=== PATIENT | male | born 1960 | race Caucasian/White ===

== ENCOUNTER 2016-10-07 22:57 | Inpatient (IN) | payer BC ==
[~2016-10-07] VITALS: Ht 180.3 cm; Wt 90.6 kg
[~2016-10-07 22:57] MED LIST: ALBU1AER9 INH; DOCU100C22 PO; GLIM4TAB2 PO; INSUINJ4 SQ; LPT/20 PO; LSN/2025 PO; METF750T PO; SENN-91 PO; WLLSR150 PO
[2016-10-07] MEDS ORDERED: KETOROLAC TROMETHAMINE 30 MG/ML VIAL IV STA (23:48)
[2016-10-07] MEDS ORDERED: SODIUM CHLORIDE 0.9% 1000ML 1,000 ML IV STA ×2 (23:48)
[2016-10-07 23:59] LABS: BASO % 0.5 %; BASO ABS # 0.04 K/uL (0-0.2); COMPLETE YES; EOS % 1.9 %; HEMATOCRIT 45.2 % (42-52); IG% 0.4 %; LYMPH % 36.7 %; LYMPH ABS # 2.73 K/uL (1.2-3.4); MEAN CELL VOLUME 89.5 fL (80-100); MEAN CORPUSCULAR HEMOGLOBIN 31.7 pg (25-34); MEAN CORPUSCULAR HGB CONC 35.4 g/dl (32-36); MEAN PLATELET VOLUME 12.9 fL (7.4-10.4); MONO % 6.7 %; NEUT % 53.8 %; PLATELET COUNT 211 K/uL (130-400); RED BLOOD COUNT 5.05 M/uL (4.7-6.1); WHITE BLOOD COUNT 7.44 K/uL (4.8-10.8)
[2016-10-08] VITALS (7 sets, daily range): BP systolic 112–127; BP diastolic 56–75; PULSE 62–79; TEMP 36.6–36.8; O2SAT 94–100; BMI 28.1; BMI 27.8
[2016-10-08 00:13] LABS: URINE APPEARANCE CLEAR (CLEAR); URINE BILIRUBIN NEG (NEG); URINE COLOR YELLOW; URINE NITRITE NEG (NEG); URINE SPECIFIC GRAVITY 1.032 (1.000-1.030); UROBILINOGEN NEG (NEG); ZZUR CULT IF INDIC CLEAN CATCH NO
[2016-10-08 00:21] LABS: MANUAL MICROSCOPIC REQUIRED? NO; REVIEW REQ? NO
[2016-10-08 00:27] LABS: VEN BLOOD GAS BASE EXCESS -0.9 mmol/L
[2016-10-08 00:44] LABS: ALKALINE PHOSPHATASE 165 U/L (45-117); ALT/SGPT 44 U/L (12-78); AST/SGOT 24 U/L (15-37); BLOOD UREA NITROGEN 26 mg/dl (7-18); BUN/CREATININE RATIO 18.6 (10-20); CALCIUM 8.6 mg/dl (8.5-10.1); CARBON DIOXIDE 23 mmol/L (21-32); CHLORIDE 92 mmol/L (98-107); CKMB/CK RATIO 0.9 (0-3.0); GLUCOSE 606 mg/dl (70-99); MAGNESIUM 2.3 mg/dl (1.8-2.4); POTASSIUM 3.7 mmol/L (3.5-5.1); SODIUM 129 mmol/L (136-145)
[2016-10-08] MEDS ORDERED: NovoLIN-R INSULIN PER UNIT CHARGE IV STA (00:47)
[2016-10-08 01:07] LABS: BETA-HYDROXYBUTYRATE 6.48 mg/dL (0.2-2.81)
[2016-10-08] MEDS ORDERED: VNTHFA/IN INH (01:08)
[2016-10-08] MEDS ORDERED: INSU100I23 SQ (01:09)
[2016-10-08] MEDS ORDERED: ASPI81TA28 PO (01:09)
[2016-10-08] MEDS ORDERED: INDO-24 PO (01:10)
[2016-10-08] MEDS ORDERED: INSULIN HUMAN REGULAR PER UNIT 10 UNITS in SYRINGE 0 ML IV STA (01:13)
[2016-10-08] MEDS ORDERED: ONDANSETRON INJ 2 MG/ML 2 ML VIAL IV PRN (01:15)
[2016-10-08] MEDS ORDERED: MAGNESIUM HYDROXIDE SUSP 30 ML UDC PO PRN (01:15)
[2016-10-08] MEDS ORDERED: POLYETHYLENE (MIRALAX) 17 GM PACK PO PRN (01:15)
[2016-10-08] MEDS ORDERED: ACETAMINOPHEN 325 MG TAB PO PRN (01:15)
[2016-10-08] MEDS ORDERED: NITROGLYCERIN 0.4 MG SL PER TAB CHARGE SL PRN (01:15)
[2016-10-08] MEDS ORDERED: ALUMINUM/MAGNESIUM/SIMETH (MAALOX MAX) 30 ML UDC PO PRN (01:15)
[2016-10-08] MEDS ORDERED: PHARMACY GLYCEMIC MGMT CONSULT PRN (01:21)
--- NOTE | 2016-10-08 01:23 | EMERGENCY ROOM VISIT NOTE ---
History First contact with patient: 23:29 Chief Complaint: HYPERGLYCEMIA Stated Complaint: SUGAR HIGH,DIZZY,URINATITE FREQUENT,CHESTPAIN Nursing Triage Summary: Patient reports feeling hot and dry and sleepy. Home BSG was out of range today. History of Present Illness The patient is a 56 year old male who presents to the Emergency Room with complaints of high blood sugars with left-sided chest pain. Patient states that he has had chest pain for the past 3 days that has been intermittent described as discomfort, ranging in severity 4 out of 10. Nothing makes it better or worse. Patient states today he noticed his blood sugars were high. Patient states he's been feeling fatigued with polydipsia, polyuria and diplopia. Patient denies dyspnea, fever, chills, cough, congestion, abdominal pain, vomiting, diarrhea, dysuria. No history of DKA. Patient states his grandfather had a heart attack in his 70s. Patient does have diabetes, blood pressure and cholesterol. He does not smoke. Review of Systems See HPI for pertinent positives & negatives. A total of 10 systems reviewed and were otherwise negative. Past Medical/Surgical History Medical Problems: (1) Calculus Of Kidney (2) Chest pain (3) Diabetes (4) Heart disease (5) Hyperlipidemia Nec/Nos (6) Hypertension (7) Irritable bowel syndrome Family History Cancer Diabetes mellitus FH: heart disease Hypertension Social History Smoking Status: Never Smoker Smokeless Tobacco Use: No Alcohol Use: none Drug Use: none Marital Status: Housing Status: lives with family Occupation Status: employed Current/Historical Medications Scheduled Aspirin (Aspirin Ec), 81 MG PO DAILY Atorvastatin (Atorvastatin Calcium), 20 MG PO DAILY Docusate Sodium (Docqlace), 100 MG PO DAILY Hctz/Lisinopril (Lisinopril/Hctz 20/25 Mg), 1 TAB PO DAILY Insulin Glargine (Basaglar Kwikpen), 30 UNITS SQ DAILY Metformin Hcl (Glucophage Er), 750 MG PO DAILY Scheduled PRN Albuterol Hfa (Ventolin Hfa), 2 PUFFS INH Q4 PRN for Shortness of Breath Indomethacin (Indocin), 50 MG PO TID PRN for Pain Allergies Uncoded Allergies: UNKNOWN EYE OINTMENT (Allergy, Unknown, Unknown, 03/06/14) Physical Exam Vital Signs Date Time Temp Pulse Resp B/P Pulse Ox O2 Delivery O2 Flow Rate FiO2 4/10/17 00:17 94 Room Air 10/08/16 00:17 95 Room Air 10/08/16 00:17 66 10/07/16 23:10 36.6 79 18 138/96 96 Room Air Physical Exam VITALS: Vitals are noted on the nurse's note and reviewed by myself. Vital signs stable. GENERAL: Pleasant male, in no acute distress, nondiaphoretic, well-developed well-nourished. SKIN: The skin was without rashes, erythema, edema, or bruising. There is no tenting of the skin. Capillary reflex less than 2 seconds. HEAD: Normocephalic atraumatic. EARS: External auditory canals clear, tympanic membranes pearly mcdonald without erythema or effusion bilaterally. EYES: Pupils equal round and reactive to light and accommodation. Conjunctivae without injection, sclerae without icterus. Extraocular movements intact. NOSE: Patent, turbinates without inflammation or discharge. MOUTH: Mucous membranes mildly dry. Pharynx without erythema or exudate. Uvula midline. Airway patent. Tongue does not deviate. NECK: Supple without nuchal rigidity. No lymphadenopathy. No thyromegaly. Cervical spine is nontender. No JVD. HEART: Regular rate and rhythm without murmurs gallops or rubs. Chest nontender to palpation LUNGS: Clear to auscultation bilaterally without wheezes, rales or rhonchi. No dullness to percussion. No retractions or accessory muscle use. ABDOMEN: Positive bowel sounds x 4. Normal tympanic percussion. Soft, nontender, without masses or organomegaly. Hernandez sign negative. No guarding or rebound tenderness. MUSCULOSKELETAL: No muscle atrophy, erythema, or edema noted. NEURO: Patient was alert and oriented to person place and time. Normal sensation to light and sharp touch. No focal neurological deficits. Medical Decision & Procedures Laboratory Results 10/07/16 23:25 Red Blood Count 5.05, Mean Corpuscular Volume 89.5, Mean Corpuscular Hemoglobin 31.7, Mean Corpuscular Hemoglobin Concent 35.4, Mean Platelet Volume 12.9, Neutrophils (%) (Auto) 53.8, Lymphocytes (%) (Auto) 36.7, Monocytes (%) (Auto) 6.7, Eosinophils (%) (Auto) 1.9, Basophils (%) (Auto) 0.5, Neutrophils # (Auto) 4.00, Lymphocytes # (Auto) 2.73, Monocytes # (Auto) 0.50, Eosinophils # (Auto) 0.14, Basophils # (Auto) 0.04 10/07/16 23:25 Test 10/07/16 23:20 10/07/16 23:25 10/08/16 00:14 10/08/16 01:14 Urine Color YELLOW Urine Appearance CLEAR (CLEAR) Urine pH 5.0 (4.5-7.5) Urine Specific [place] 1.032 (1.000-1.030) Urine Protein NEG (NEG) Urine Glucose (UA) 3+ (NEG) Urine Ketones TRACE (NEG) Urine Occult Blood NEG (NEG) Urine Nitrite NEG (NEG) Urine Bilirubin NEG (NEG) Urine Urobilinogen NEG (NEG) Urine Leukocyte Esterase NEG (NEG) White Blood Count 7.44 K/uL (4.8-10.8) Red Blood Count 5.05 M/uL (4.7-6.1) Hemoglobin 16.0 g/dL (14.0-18.0) Hematocrit 45.2 % (42-52) Mean Corpuscular Volume 89.5 fL (80-100) Mean Corpuscular Hemoglobin 31.7 pg (25-34) Mean Corpuscular Hemoglobin Concent 35.4 g/dl (32-36) Platelet Count 211 K/uL (130-400) Mean Platelet Volume 12.9 fL (7.4-10.4) Neutrophils (%) (Auto) 53.8 % Lymphocytes (%) (Auto) 36.7 % Monocytes (%) (Auto) 6.7 % Eosinophils (%) (Auto) 1.9 % Basophils (%) (Auto) 0.5 % Neutrophils # (Auto) 4.00 K/uL (1.4-6.5) Lymphocytes # (Auto) 2.73 K/uL (1.2-3.4) Monocytes # (Auto) 0.50 K/uL (0.11-0.59) Eosinophils # (Auto) 0.14 K/uL (0-0.5) Basophils # (Auto) 0.04 K/uL (0-0.2) RDW Standard Deviation 38.8 fL (36.4-46.3) RDW Coefficient of Variation 11.9 % (11.5-14.5) Immature Granulocyte % (Auto) 0.4 % Immature Granulocyte # (Auto) 0.03 K/uL (0.00-0.02) Anion Gap 14.0 mmol/L (3-11) Est Creatinine Clear Calc Drug Dose 65.1 ml/min Estimated GFR () 65.6 Estimated GFR (Non- 56.6 BUN/Creatinine Ratio 18.6 (10-20) Calcium Level 8.6 mg/dl (8.5-10.1) Magnesium Level 2.3 mg/dl (1.8-2.4) Total Bilirubin 0.5 mg/dl (0.2-1) Direct Bilirubin mg/dl (0-0.2) Aspartate Amino Transf (AST/SGOT) 24 U/L (15-37) Alanine Aminotransferase (ALT/SGPT) 44 U/L (12-78) Alkaline Phosphatase 165 U/L (45-117) Total Creatine Kinase 187 U/L (39-308) Creatine Kinase MB 1.7 ng/ml (0.5-3.6) Creatine Kinase MB Ratio 0.9 (0-3.0) Troponin I < 0.015 ng/ml (0-0.045) Total Protein 7.7 gm/dl (6.4-8.2) Albumin 4.2 gm/dl (3.4-5.0) Lipase 275 U/L (73-393) Beta-Hydroxybutyric Acid 6.48 mg/dL (0.2-2.81) Chemistry Specimen Hemolysis Venous Blood pH 7.36 (7.36-7.41) Venous Blood Partial Pressure CO2 44 mmHg (38.0-50.0) Venous Blood Partial Pressure O2 32 mmHg Venous Blood HCO3 25 mmol/L Venous Blood Oxygen Saturation 60.0 % Venous Blood Base Excess -0.9 mmol/L Medications Administered Medications (Trade) Dose Ordered Sig/Riley Route Start Time Stop Time Status Last Admin Dose Admin Sodium Chloride 1,000 ml @ 999 mls/hr Q1H1M STAT IV 10/07/16 23:48 10/08/16 00:48 DC 10/07/16 23:48 999 MLS/HR Sodium Chloride (Nss 1000ml) 1,000 ml @ 125 mls/hr Q8H STAT IV 10/07/16 23:48 10/08/16 07:47 10/07/16 23:48 125 MLS/HR Ketorolac Tromethamine (Toradol Inj) 30 mg NOW STAT IV 10/07/16 23:48 10/07/16 23:53 DC 10/08/16 00:16 30 MG Insulin Human Regular (novoLIN-R U-100 PER UNIT) 10 units NOW STAT IV 10/08/16 00:47 10/08/16 00:48 DC 10/08/16 00:53 10 UNITS ED Course Prior records/ancillary studies reviewed and summarized above. Nursing notes reviewed. Additional history obtained from family. The patient's history was concerning for hyperglycemia and chest pain. Differential diagnosis: Etiologies such as metabolic, infection, hypo/hyperglycemia, electrolyte abnormalities, cardiac sources, intracerebral event, toxicologic, neurologic, as well as others were entertained. Physical examination: As above. ER treatment provided: IV Lock IV fluids, insulin On reassessment the patient felt better. Diagnostics interpretation by me: ECG: Normal sinus, normal intervals, no acute ST-T wave changes. Impression normal sinus rhythm interpreted by myself The labs revealed hyperglycemia without DKA. Negative troponin Imaging studies: Chest x-ray with no acute consolidation, pneumothorax or free air per my interpretation Consultation: A consultation was placed with the hospitalist, Dr. Retnaa. The case was discussed and diagnostics were reviewed. The patient was evaluated in the ER for further treatment. Exam and history seem consistent with type 2 diabetes with hyperglycemia without DKA and precordial chest pain. Patient will be evaluated by medicine for possible cardiac rule out. He has multiple risk factors. No recent stress test or echo. He has a family history of heart disease. His initial troponin is negative. Normal EKG. Blood sugar improved with insulin. By the evaluation outlined above emergent etiologies such as infection, intracerebral event, toxologic, neurologic, metabolic, as well as others were deemed relatively unlikely. The pt informed about the findings as listed above. All questions were answered and pleased with the treatment. case reviewed with my Attending. Medical Decision As above Impression Primary Impression: Diabetes mellitus with hyperglycemia Additional Impression: Precordial chest pain Departure Information Dispostion Being Evaluated By Hospitalist Condition GOOD Referrals Johanna Pascual M.D. 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
[2016-10-08] MEDS ORDERED: DEXTROSE 50% 50 ML SYR IV PRN (01:30)
[2016-10-08] MEDS ORDERED: INDOMETHACIN 25 MG CAP PO PRN (01:30)
[2016-10-08] MEDS ORDERED: GLUCAGON FOR INJ 1 MG VIAL SQ PRN (01:30)
[2016-10-08] MEDS ORDERED: INSULIN REGULAR 10 UNITS in SYRINGE 9.9 ML IV SCH (01:30)
[2016-10-08] MEDS ORDERED: GLUCOSE 10 TABS/TUBE PO PRN (01:30)
[2016-10-08] MEDS ORDERED: ALBUTEROL HFA 8 GM INHALER INH PRN (01:30)
[2016-10-08] MEDS ORDERED: GLUCOSE 40% GEL 15 GM TUBE PO PRN (01:30)
[2016-10-08] MEDS ORDERED: INSULIN GLARGINE SOLOSTAR 100 UNITS/ML 3 ML PEN SC SCH (01:30)
[2016-10-08] MEDS ORDERED: INSULIN ASPART 100 UNITS/ML 3 ML PEN SC STA (02:14)
[2016-10-08] MEDS ORDERED: NSS + 20MEQ KCL 1000ML 1,000 ML IV SCH (02:15)
[2016-10-08] MEDS ORDERED: INSULIN GLARGINE SOLOSTAR 100 UNITS/ML 3 ML PEN SC STA ×2 (02:47→08:07)
--- NOTE | 2016-10-08 04:50 | History and Physical ---
History & Physical Date & Time of Service: Oct 08, 2016 at 04:49 Chief Complaint: Chest Pain,Hyperglycemia Primary Care Physician: Johanna Pascual M.D. History of Present Illness Source: patient The patient is a 56 year old male with past medical hx of HTN , Type 2 DM presented to ED with complain of left sided intermittent chest pain . Mentions that he has been experiencing intermittent left sided chest discomfort , pressure for past 3 days , no SOB , no dizzy spell , denies of [place] or orthopnea no prior hx of CAD pt also been having polydipsia , polyuria , diplopia for 1 week , home BSG check been 200-300 experiencing fatigue and weakness no complain of fever, chills, cough, congestion, abdominal pain, vomiting, diarrhea, dysuria. on presentation to ED -BSG elevated > 600 Anion gap 14 /Beta Hydroxybutyrate 6.48 Initial troponin was negative , EKG did not had any acute ischemic change Past Medical/Surgical History Medical Problems: (1) Calculus Of Kidney Status: Resolved (2) Diabetes Status: Chronic (3) Heart disease Status: Chronic (4) Hyperlipidemia Nec/Nos Status: Chronic (5) Hypertension Status: Chronic (6) Irritable bowel syndrome Status: Chronic Family History Cancer Diabetes mellitus FH: heart disease Hypertension Social History Smoking Status: Never Smoker Smokeless Tobacco Use: No Drug Use: none Marital Status: Housing status: lives with family Occupational Status: employed Immunizations History of Influenza Vaccine: No History of Tetanus Vaccine?: Unknown History of Pneumococcal: No History of Hepatitis B Vaccine: Unknown Multi-Drug Resistant Organisms History of MDRO: No Allergies Uncoded Allergies: UNKNOWN EYE OINTMENT (Allergy, Unknown, Unknown, 03/06/14) Home Medications Scheduled Aspirin (Aspirin Ec), 81 MG PO DAILY Atorvastatin (Atorvastatin Calcium), 20 MG PO DAILY Docusate Sodium (Docqlace), 100 MG PO DAILY Hctz/Lisinopril (Lisinopril/Hctz 20/25 Mg), 1 TAB PO DAILY Insulin Aspart (Novolog Flexpen), 8 UNITS SC TIDM Insulin Glargine (Basaglar Kwikpen), 34 UNITS SQ DAILY Metformin Hcl (Glucophage Er), 750 MG PO DAILY Scheduled PRN Albuterol Hfa (Ventolin Hfa), 2 PUFFS INH Q4 PRN for Shortness of Breath Indomethacin (Indocin), 50 MG PO TID PRN for Pain Review of Systems Constitutional: No chills, No fatigue, No fever, No problem reported, No sweats , No weakness, No weight loss Eyes: No diplopia, No discharge, No eye pain, No problem reported, No redness, No worsening of vision Respiratory: + dyspnea on exertion Cardiovascular: + chest pain Abdomen: + nausea Musculoskeletal: No calf pain, No joint pain, No muscle pain, No problem reported, No swelling Neurologic: + numbness/tingling, + vertigo Endocrine: + excessive thirst, + excessive urination, + fatigue Physical Exam Vital Signs Date Time Temp Pulse Resp B/P Pulse Ox O2 Delivery O2 Flow Rate FiO2 10/08/16 04:20 100 10/08/16 04:20 62 18 10/08/16 02:22 36.6 79 18 127/56 Room Air 10/08/16 02:12 67 16 126/76 96 10/08/16 00:17 94 Room Air 10/08/16 00:17 95 Room Air 10/08/16 00:17 66 10/08/16 00:15 63 16 125/77 95 Room Air 10/07/16 23:10 36.6 79 18 138/96 96 Room Air General Appearance: no apparent distress Head: normocephalic, atraumatic Respiratory/Chest: chest non-tender, lungs clear, normal breath sounds, no respiratory distress Cardiovascular: regular rate, rhythm Abdomen/GI: normal bowel sounds, non tender, soft Back: normal inspection Extremities/Musculoskelatal: no calf tenderness, normal capillary refill, no pedal edema Neurologic/Psych: no motor/sensory deficits, alert, normal mood/affect, oriented x 3 Skin: normal color, warm/dry, no rash Lymphatic: no adenopathy Diagnostics Laboratory Results Results Past 24 Hours Test 10/07/16 23:20 10/07/16 23:25 10/07/16 23:29 10/07/16 23:32 Range/Units Urine Color YELLOW Urine Appearance CLEAR CLEAR Urine pH 5.0 4.5-7.5 Urine Specific [place] 1.032 1.000-1.030 Urine Protein NEG NEG Urine Glucose (UA) 3+ NEG Urine Ketones TRACE NEG Urine Occult Blood NEG NEG Urine Nitrite NEG NEG Urine Bilirubin NEG NEG Urine Urobilinogen NEG NEG Urine Leukocyte Esterase NEG NEG White Blood Count 7.44 4.8-10.8 K/uL Red Blood Count 5.05 4.7-6.1 M/uL Hemoglobin 16.0 14.0-18.0 g/dL Hematocrit 45.2 42-52 % Mean Corpuscular Volume 89.5 80-100 fL Mean Corpuscular Hemoglobin 31.7 25-34 pg Mean Corpuscular Hemoglobin Concent 35.4 32-36 g/dl Platelet Count 211 130-400 K/uL Mean Platelet Volume 12.9 7.4-10.4 fL Neutrophils (%) (Auto) 53.8 % Lymphocytes (%) (Auto) 36.7 % Monocytes (%) (Auto) 6.7 % Eosinophils (%) (Auto) 1.9 % Basophils (%) (Auto) 0.5 % Neutrophils # (Auto) 4.00 1.4-6.5 K/uL Lymphocytes # (Auto) 2.73 1.2-3.4 K/uL Monocytes # (Auto) 0.50 0.11-0.59 K/uL Eosinophils # (Auto) 0.14 0-0.5 K/uL Basophils # (Auto) 0.04 0-0.2 K/uL RDW Standard Deviation 38.8 36.4-46.3 fL RDW Coefficient of Variation 11.9 11.5-14.5 % Immature Granulocyte % (Auto) 0.4 % Immature Granulocyte # (Auto) 0.03 0.00-0.02 K/uL D-Dimer < 190 0-500 ug/L FEU Sodium Level 129 136-145 mmol/L Potassium Level 3.7 3.5-5.1 mmol/L Chloride Level 92 98-107 mmol/L Carbon Dioxide Level 23 21-32 mmol/L Anion Gap 14.0 3-11 mmol/L Blood Urea Nitrogen 26 7-18 mg/dl Creatinine 1.40 0.60-1.40 mg/dl Est Creatinine Clear Calc Drug Dose 65.1 ml/min Estimated GFR () 65.6 Estimated GFR (Non- 56.6 BUN/Creatinine Ratio 18.6 10-20 Random Glucose 606 70-99 mg/dl Calcium Level 8.6 8.5-10.1 mg/dl Magnesium Level 2.3 1.8-2.4 mg/dl Total Bilirubin 0.5 0.2-1 mg/dl Direct Bilirubin 0-0.2 mg/dl Aspartate Amino Transf (AST/SGOT) 24 15-37 U/L Alanine Aminotransferase (ALT/SGPT) 44 12-78 U/L Alkaline Phosphatase 165 45-117 U/L Total Creatine Kinase 187 39-308 U/L Creatine Kinase MB 1.7 0.5-3.6 ng/ml Creatine Kinase MB Ratio 0.9 0-3.0 Troponin I < 0.015 0-0.045 ng/ml Total Protein 7.7 6.4-8.2 gm/dl Albumin 4.2 3.4-5.0 gm/dl Lipase 275 73-393 U/L Beta-Hydroxybutyric Acid 6.48 0.2-2.81 mg/dL Chemistry Specimen Hemolysis Bedside Glucose > 600 > 600 70-99 mg/dl Test 10/08/16 00:14 10/08/16 01:55 10/08/16 02:43 10/08/16 04:44 Range/Units Venous Blood pH 7.36 7.36-7.41 Venous Blood Partial Pressure CO2 44 38.0-50.0 mmHg Venous Blood Partial Pressure O2 32 mmHg Venous Blood HCO3 25 mmol/L Venous Blood Oxygen Saturation 60.0 % Venous Blood Base Excess -0.9 mmol/L Bedside Glucose 287 319 70-99 mg/dl CXR normal EKG NSR 73 , possible inf infract , when compare with EKG of Nov 27 2015 , no significant change was noted Normal EKG Impression Assessment and Plan CHEST PAIN R/O ACS : presented with anginal symptom risk factors for CAD -includes Type 2DM /presented with hyperglycemia /HTN admit to tele at present no complain of chest pain , initial troponin negative, EKG no acute ischemic change ordered for serial cardiac markers resting ECHO Cardiology consult requested NPO past midnight for possible cardiac stress test in AM HYPERGLYCEMIA /TYPE 2 DM : presented with BSG > 600 no evidence of DKA mild elevation of AG, normal Hco3 out patient anti diabetic regimen : Insulin Glargine 30 U daily metformin ER 750 mg daily ordered for Insulin 10 Units IV in ED Iv fluids , basal Lantus , insulin SSI ordered for Hb A1 c to added in AM lab Pharmacy consulted for glycemic management HYPONATREMIA : due to hyperglycemia with combination of dehydration -due to polyuria for elevated BSG IVF with NSS follow PRP Hold HCTZ FULL CODE DVT PROPHYLAXIS : sub q heparin DISPOSITION : expected to return to home when medically stable Medicine follow up with Dr Pascual Level of Care Telemetry Advanced Directives Existing Living Will: No Existing Power of Independent Beauty Consultant: No Resuscitation Status FULL RESUSCITATION VTE Prophylaxis VTE Risk Assessment Done? Y/N: Yes Risk Level: Moderate Given or contraindicated: Unfractionated heparin SQ Additional Copies To Johanna Pascual M.D.
--- NOTE | 2016-10-08 07:00 | DIAGNOSTIC IMAGING REPORT ---
CHEST ONE VIEW PORTABLE CLINICAL HISTORY: Chest pain. Hyperglycemia. COMPARISON STUDY: Chest radiograph January 08, 2015. FINDINGS: Lung volumes are normal. No pneumothorax or pleural effusion is present. Pulmonary vascularity is normal. Cardiac size is normal. Mediastinal contours are normal. There is no evidence of pulmonary edema. IMPRESSION: No acute cardiopulmonary findings. Electronically signed by: Kishore Jaramillo M.D. 10/08/2016 6:58 AM Dictated Date/Time: 10/08/2016 6:57 AM
[2016-10-08 07:32] LABS: PROTHROMBIN TIME (PATIENT) 10.4 SECONDS (9.0-12.0)
[2016-10-08 07:53] LABS: ESTIMATED AVERAGE GLUCOSE 352 mg/dl; HA1C FLAG Normal (Normal)
[2016-10-08 08:02] LABS: BLOOD UREA NITROGEN 26 mg/dl (7-18); BUN/CREATININE RATIO 21.6 (10-20); CARBON DIOXIDE 25 mmol/L (21-32); CHLORIDE 102 mmol/L (98-107); CHOLESTEROL 156 mg/dl (0-200); CHOLESTEROL/HDL RATIO 5.2; CKMB/CK RATIO 0.9 (0-3.0); GLUCOSE 365 mg/dl (70-99); HDL CHOLESTEROL 30 mg/dl; MAGNESIUM 2.3 mg/dl (1.8-2.4); PHOSPHORUS 3.3 mg/dl (2.5-4.9); POTASSIUM 3.8 mmol/L (3.5-5.1); SODIUM 136 mmol/L (136-145); TRIGLYCERIDES 402 mg/dl (0-150)
[2016-10-08] MEDS: INSULIN ASPART 100 UNITS/ML 3 ML PEN SC SCH ×4 (08:30→20:53)
[2016-10-08] MEDS: DOCUSATE SODIUM 100 MG CAP PO SCH (08:31)
[2016-10-08] MEDS: ASPIRIN 81 MG ECTAB PO SCH (08:31)
[2016-10-08] MEDS: ATORVASTATIN 20 MG TAB PO SCH (08:32)
[2016-10-08] MEDS: LISINOPRIL/HCTZ 20/25MG TAB PO SCH (08:32)
[2016-10-08] MEDS: HEPARIN SOD 5000 UNIT/0.5 ML CARP SQ SCH ×3 (08:53→21:18)
[2016-10-08] MEDS ORDERED: ASPIRIN 81 MG ECTAB PO SCH (09:00)
[2016-10-08] MEDS ORDERED: ATROPINE SULFATE 0.1 MG/ML 5ML SYR ONE (09:57)
[2016-10-08] MEDS ORDERED: DOBUTamine HCL 12.5 MG/ML 20 ML VIAL ONE (09:57)
[2016-10-08] MEDS ORDERED: METOPROLOL TARTRATE 1 MG/ML VIAL ONE (09:57)
--- NOTE | 2016-10-08 10:16 | Progress Note ---
Progress Note Date of Service Oct 08, 2016. Progress Note Nonischemic stress test. no further cardiac testing necessary.
--- NOTE | 2016-10-08 14:06 | Pharmacy Progress Note ---
Glycemic Control Intl Consult Date of Service Oct 08, 2016. Scope Glycemic Pharmacist consulted by Dr Retana on 10/08 for glycemic control and to write orders per [facility] inpatient glycemic control protocol Objective Weight (Kilograms): 90.300 Accuchecks BSG (last 24hrs): Test 10/07/16 23:25 10/07/16 23:29 10/07/16 23:32 10/08/16 01:55 Random Glucose 606 mg/dl (70-99) Bedside Glucose > 600 mg/dl (70-99) > 600 mg/dl (70-99) 287 mg/dl (70-99) Test 10/08/16 02:43 10/08/16 07:05 10/08/16 08:45 10/08/16 11:14 Bedside Glucose 319 mg/dl (70-99) 386 mg/dl (70-99) 336 mg/dl (70-99) Random Glucose 365 mg/dl (70-99) Laboratory Data (last 24hrs) Test 10/07/16 23:25 10/08/16 07:05 Anion Gap 14.0 mmol/L 9.0 mmol/L BUN/Creatinine Ratio 18.6 21.6 Blood Urea Nitrogen 26 mg/dl 26 mg/dl Creatinine 1.40 mg/dl 1.20 mg/dl Potassium Level 3.7 mmol/L 3.8 mmol/L Sodium Level 129 mmol/L 136 mmol/L White Blood Count 7.44 K/uL Red Blood Count 5.05 M/uL Hemoglobin 16.0 g/dL Hematocrit 45.2 % Mean Corpuscular Volume 89.5 fL Mean Corpuscular Hemoglobin 31.7 pg Mean Corpuscular Hemoglobin Concent 35.4 g/dl Platelet Count 211 K/uL Mean Platelet Volume 12.9 fL Neutrophils (%) (Auto) 53.8 % Lymphocytes (%) (Auto) 36.7 % Monocytes (%) (Auto) 6.7 % Eosinophils (%) (Auto) 1.9 % Basophils (%) (Auto) 0.5 % Neutrophils # (Auto) 4.00 K/uL Lymphocytes # (Auto) 2.73 K/uL Monocytes # (Auto) 0.50 K/uL Eosinophils # (Auto) 0.14 K/uL Basophils # (Auto) 0.04 K/uL Hemoglobin A1c 13.9 % HbA1c Test 10/08/16 07:05 Hemoglobin A1c 13.9 % (4.5-5.6) H Recent Pertinent Medications Outpatient Anti-diabetic Regimen: * Basaglar (insulin glargine) 30 units daily * Metformin ER 750 mg daily The patient is currently receiving: * Basal insulin: Lantus 15 units x 1 ~0400 this AM + addl 8 units ~ 0800 * Correctional Insulin: Novolog Correction per scale ACHS Goal Range: Low 140 mg/dL - High 180 mg/dL Correction Factor: 25 mg/dL/unit * Prandial insulin: Per carb ratio of 1 unit per 10 grams CHO consumed * Oral Agents: None at this time Risk Factors for Insulin Resistance: * Diet: type 2 diabetes/AHA - consumed ~30 gm CHO with each meal today Assessment & Plan ASSESSMENT: * ADA & AACE recommend a goal blood sugar range 140-180 mg/dl for the majority of critically ill & non-critically ill patients. However, more stringent targets may be selected in individual cases. 10/08/16 * Mr. Jacobson is a 56 y/o male admitted w/ hyperglycemia, but not in DKA * His A1c is significantly elevated, indicating inadequate insulin doses as an outpatient * He is on basal insulin + metformin as an outpatient, but most likely needs prandial insulin as well * As an inpatient, will plan to utilize a basal/bolus regimen using Lantus + Novolog * Will base insulin dosing off of his weight and a stress level of 2 * Will also add overnight accuchecks to provide additional correctional insulin and help to determine appropriate basal dose PLAN FOR INPATIENT GLYCEMIC CONTROL: * Lantus 16 units BID - 1st dose w/ dinner to act as a "loading dose" * Novolog ACHS + 0200 * Goal 110-140 mg/dL - more stringent due to patient's age * CF 20 mg/dL/unit * CR 1 unit per 8 gm CHO consumed * Please note that the plan above was derived based on current level of insulin resistance and hospital stress. These recommendations are appropriate for inpatient admission only. Plan of care upon discharge will need to be reassessed to avoid potential outpatient hypo/hyperglycemia. Thank you.
[2016-10-08 16:05] LABS: CKMB/CK RATIO 0.9 (0-3.0)
[2016-10-08] MEDS ORDERED: INSULIN GLARGINE SOLOSTAR 100 UNITS/ML 3 ML PEN SC ONE (17:00)
--- NOTE | 2016-10-08 19:16 | Progress Note ---
Medicine Progress Note Date & Time of Visit: Oct 08, 2016 at 19:10. Subjective Patient seen and examined. Denies any chest pain. Tolerated stress test this am. Objective Last 8 Hrs Date Time Temp Pulse Resp B/P Pulse Ox O2 Delivery O2 Flow Rate FiO2 10/08/16 16:00 Room Air 10/08/16 14:59 36.8 69 16 112/68 95 Room Air 10/08/16 12:00 Room Air 10/08/16 11:45 36.6 64 22 126/73 94 Room Air Physical Exam: General-awake; alert; NAD Eyes-EOMI; no scleral icterus Neck-no stridor; trachea midline Lungs-CTA bilaterally; no wheezes/crackles Heart-RRR; no m/r/g Abdomen-soft; NTND; nBS Extremities-no c/c/e; no deformity Neuro-no focal deficits Laboratory Results: Last 24 Hours Test 10/07/16 23:20 10/07/16 23:25 10/07/16 23:32 10/08/16 00:14 Urine Color YELLOW Urine Appearance CLEAR Urine pH 5.0 Urine Specific [place] 1.032 Urine Protein NEG Urine Glucose (UA) 3+ Urine Ketones TRACE Urine Occult Blood NEG Urine Nitrite NEG Urine Bilirubin NEG Urine Urobilinogen NEG Urine Leukocyte Esterase NEG White Blood Count 7.44 K/uL Red Blood Count 5.05 M/uL Hemoglobin 16.0 g/dL Hematocrit 45.2 % Mean Corpuscular Volume 89.5 fL Mean Corpuscular Hemoglobin 31.7 pg Mean Corpuscular Hemoglobin Concent 35.4 g/dl Platelet Count 211 K/uL Mean Platelet Volume 12.9 fL Neutrophils (%) (Auto) 53.8 % Lymphocytes (%) (Auto) 36.7 % Monocytes (%) (Auto) 6.7 % Eosinophils (%) (Auto) 1.9 % Basophils (%) (Auto) 0.5 % Neutrophils # (Auto) 4.00 K/uL Lymphocytes # (Auto) 2.73 K/uL Monocytes # (Auto) 0.50 K/uL Eosinophils # (Auto) 0.14 K/uL Basophils # (Auto) 0.04 K/uL RDW Standard Deviation 38.8 fL RDW Coefficient of Variation 11.9 % Immature Granulocyte % (Auto) 0.4 % Immature Granulocyte # (Auto) 0.03 K/uL D-Dimer < 190 ug/L FEU Sodium Level 129 mmol/L Potassium Level 3.7 mmol/L Chloride Level 92 mmol/L Carbon Dioxide Level 23 mmol/L Anion Gap 14.0 mmol/L Blood Urea Nitrogen 26 mg/dl Creatinine 1.40 mg/dl Est Creatinine Clear Calc Drug Dose 65.1 ml/min Estimated GFR () 65.6 Estimated GFR (Non- 56.6 BUN/Creatinine Ratio 18.6 Random Glucose 606 mg/dl Calcium Level 8.6 mg/dl Magnesium Level 2.3 mg/dl Total Bilirubin 0.5 mg/dl Direct Bilirubin mg/dl Aspartate Amino Transf (AST/SGOT) 24 U/L Alanine Aminotransferase (ALT/SGPT) 44 U/L Alkaline Phosphatase 165 U/L Total Creatine Kinase 187 U/L Creatine Kinase MB 1.7 ng/ml Creatine Kinase MB Ratio 0.9 Troponin I < 0.015 ng/ml Total Protein 7.7 gm/dl Albumin 4.2 gm/dl Lipase 275 U/L Beta-Hydroxybutyric Acid 6.48 mg/dL Chemistry Specimen Hemolysis Bedside Glucose > 600 mg/dl Venous Blood pH 7.36 Venous Blood Partial Pressure CO2 44 mmHg Venous Blood Partial Pressure O2 32 mmHg Venous Blood HCO3 25 mmol/L Venous Blood Oxygen Saturation 60.0 % Venous Blood Base Excess -0.9 mmol/L Test 10/08/16 01:55 10/08/16 02:43 10/08/16 07:05 10/08/16 08:45 Bedside Glucose 287 mg/dl 319 mg/dl 386 mg/dl Prothrombin Time 10.4 SECONDS Prothromb Time International Ratio 1.0 Sodium Level 136 mmol/L Potassium Level 3.8 mmol/L Chloride Level 102 mmol/L Carbon Dioxide Level 25 mmol/L Anion Gap 9.0 mmol/L Blood Urea Nitrogen 26 mg/dl Creatinine 1.20 mg/dl Est Creatinine Clear Calc Drug Dose 81.4 ml/min Estimated GFR () 79.0 Estimated GFR (Non- 68.1 BUN/Creatinine Ratio 21.6 Random Glucose 365 mg/dl Estimated Average Glucose 352 mg/dl Hemoglobin A1c 13.9 % Calcium Level 8.0 mg/dl Phosphorus Level 3.3 mg/dl Magnesium Level 2.3 mg/dl Total Creatine Kinase 131 U/L Creatine Kinase MB 1.2 ng/ml Creatine Kinase MB Ratio 0.9 Troponin I < 0.015 ng/ml Triglycerides Level 402 mg/dl Cholesterol Level 156 mg/dl HDL Cholesterol 30 mg/dl LDL Cholesterol, Calculated mg/dl VLDL Cholesterol, Calculated mg/dl Cholesterol/HDL Ratio 5.2 Beta-Hydroxybutyric Acid 6.30 mg/dL Test 10/08/16 11:14 10/08/16 15:26 10/08/16 17:11 Bedside Glucose 336 mg/dl 196 mg/dl Total Creatine Kinase 116 U/L Creatine Kinase MB 1.1 ng/ml Creatine Kinase MB Ratio 0.9 Troponin I < 0.015 ng/ml Assessment & Plan Patient is a 56 y/o male who presented with elevated glucoses and chest pain. Chest pain - ACS r/o negative - Cardiology consulted - dobutamine stress test negative Poorly controlled type 2 diabetes - glycemic pharmacy consulted - nurse educator consulted - titrate insulin therapy - A1c of 13.9 HTN - continue lisinopril/HCTZ - continue aspirin Dyslipidemia - continue atorvastatin DVT prophylaxis with heparin sq Anticipate discharge home tomorrow Discharge planning: home Consultants: Cardiology Procedures: Dobutamine stress echo negative for ischemia Current Inpatient Medications: Current Inpatient Medications Medications (Trade) Dose Ordered Sig/Riley Route Start Time Stop Time Status Last Admin Dose Admin Heparin Sodium (Porcine) (Heparin Sq 5000 Unit/0.5ml) 5,000 unit Q8 SQ 10/08/16 08:00 11/07/16 07:59 10/08/16 15:57 5,000 UNIT Acetaminophen (Tylenol Tab) 650 mg Q4H PRN PO 10/08/16 01:15 11/07/16 01:14 Al Hydrox/Mg Hydrox/Simethicone (Maalox Max Susp) 15 ml Q4H PRN PO 10/08/16 01:15 11/07/16 01:14 Magnesium Hydroxide (Milk Of Magnesia Susp) 30 ml Q12H PRN PO 10/08/16 01:15 11/07/16 01:14 Ondansetron HCl (Zofran Inj) 4 mg Q6H PRN IV 10/08/16 01:15 11/07/16 01:14 Nitroglycerin (Nitrostat Tab) 0.4 mg UD PRN SL 10/08/16 01:15 11/07/16 01:14 Polyethylene (Miralax Powder Packet) 17 gm DAILY PRN PO 10/08/16 01:15 11/07/16 01:14 Insulin Aspart (novoLOG ASPART) SLIDING SCALE IF C... ACHS SC 10/08/16 06:30 11/07/16 06:59 10/08/16 17:52 12 UNITS Glucose (Glucose 40% Gel) 15-30 GRAMS 15 GRAMS... UD PRN PO 10/08/16 01:30 11/07/16 01:29 Glucose (Glucose Chew Tab) 4-8 Tablets 4 Tabl... UD PRN PO 10/08/16 01:30 11/07/16 01:29 Dextrose (Dextrose 50% 50ML Syringe) 25-50ML OF 50% DW IV FOR... UD PRN IV 10/08/16 01:30 11/07/16 01:29 Glucagon (Glucagon Inj) 1 mg UD PRN SQ 10/08/16 01:30 11/07/16 01:29 Miscellaneous Information (Consult Glycemic Management Pharmacy) 1 ea DAILY PRN N/A 10/08/16 01:21 11/07/16 01:20 Albuterol (Ventolin Hfa Inhaler) 2 puffs Q4 PRN INH 10/08/16 01:30 11/07/16 01:29 Aspirin (Ecotrin Tab) 81 mg DAILY PO 10/08/16 09:00 11/07/16 08:59 10/08/16 08:31 81 MG Atorvastatin Calcium (Lipitor Tab) 20 mg DAILY PO 10/08/16 09:00 11/07/16 08:59 10/08/16 08:32 20 MG Docusate Sodium (coLACE CAP) 100 mg DAILY PO 10/08/16 09:00 11/07/16 08:59 10/08/16 08:31 100 MG HCTZ/Lisinopril (Prinzide 20-25MG Tab) 1 tab DAILY PO 10/08/16 09:00 11/07/16 08:59 10/08/16 08:32 1 TAB Indomethacin (Indocin Cap) 50 mg TID PRN PO 10/08/16 01:30 11/07/16 01:29 Insulin Glargine (Lantus Solostar Pen) 16 unit BID SC 10/09/16 09:00 11/08/16 08:59 Insulin Aspart (novoLOG ASPART) SLIDING SCALE IF C... 0200 ONCE SC 10/09/16 02:00 10/09/16 02:01
--- NOTE | 2016-10-08 21:46 | CARDIOLOGY CONSULTATION ---
DATE OF CONSULTATION: 10/08/2016 CONSULTATION REQUESTED BY: Dr. Retana. REASON FOR CONSULTATION: Chest discomfort. HISTORY OF PRESENT ILLNESS: Mr. Jacobson is a very pleasant 56-year-old gentleman who was presented to [facility] late in the evening of October 07 with a complaint of chest discomfort and uncontrolled blood sugar. The patient states he has noticed he has been having some chest tightness off and on for the last several days. He states he first noticed it the other day when he was working on his mother's car when he came back in the house to sit down after feeling fatigued. After sitting down for a few minutes, he developed some chest tightness. He described it as just a tightness sensation in the middle of his chest that radiated across the precordium. He denied any further radiation of the discomfort or any associated shortness of breath, diaphoresis, nausea, palpitations, lightheadedness, dizziness, or syncope. He states over this next several days, his chest discomfort continued to wax and wane. It did not follow any pattern, did not occur with exertion. During the same time, his blood sugars became mildly out of control and his home blood pressure said unable to read, it was so high. Upon presentation to the Emergency Department, initial evaluation was unremarkable and he was admitted to telemetry unit. In the a.m. of 10/08/2016 after a second negative troponin, the patient underwent dobutamine stress echocardiogram which was unremarkable. PAST SURGICAL HISTORY: 1. Sphincterotomy. 2. Colonoscopy. 3. Lithotripsy. 4. Cardiac catheterization in 2008 showing clean coronary arteries. 5. Hernia repair. MEDICAL ILLNESSES: 1. Diabetes. 2. Dyslipidemia. 3. Hypertension. 4. Obstructive sleep apnea on nocturnal CPAP. 5. Renal calculi. FAMILY HISTORY: Denies any premature coronary artery disease or sudden cardiac . SOCIAL HISTORY: The patient denies any alcohol, tobacco or recreational drug use. He is and lives at home with his . He has 3 children. 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 He does not exercise. REVIEW OF SYSTEMS: As per HPI, all other review of systems reviewed and negative at this time. ALLERGIES: ZACK. MEDICATIONS AN OUTPATIENT: 1. Lisinopril/hydrochlorothiazide 20/25 mg daily. 2. Aspirin 81 mg daily. 3. Atorvastatin 20 mg daily. 4. 70/30 insulin as directed. 5. Indomethacin as needed. 6. Sildenafil as needed. 7. Metformin daily. PHYSICAL EXAMINATION: VITAL SIGNS: Temperature 36.7, pulse 66, respiratory rate 12, blood pressure 124/75. GENERAL: Awake, alert, oriented x3, in no acute distress. HEENT: Normocephalic and atraumatic. Pupils equal, round, and reactive to light and accommodation. Extraocular muscles intact. Anicteric sclerae. Moist mucous membranes. NECK: No JVD. No bruit. CARDIOVASCULAR: Regular. No S4. Normal S1 and S2. No S3. No murmurs, rubs or gallops. PULMONARY: Clear to auscultation bilaterally. No rales, rhonchi, or wheezing. ABDOMEN: Bowel sounds x4, soft. No rebound, guarding, tenderness. No organomegaly. EXTREMITIES: No clubbing, cyanosis or edema. +2 pedal pulses bilaterally. SKIN: Warm and dry. TEST RESULTS: A 12-lead EKG performed in the Emergency Department independently reviewed at this time shows normal sinus rhythm at 73 beats per minute, normal axis, normal intervals, inverted T waves in the inferior leads, no significant change compared to previous studies. LABORATORY STUDIES OF SIGNIFICANCE: Troponin negative x2. CPK of 131. Dobutamine stress echocardiogram was nonischemic. IMPRESSION: 1. Chest discomfort with nonischemic dobutamine stress echocardiogram. 2. Uncontrolled blood sugars. 3. Diabetes. 4. Dyslipidemia. 5. Hypertension. RECOMMENDATIONS: It was my pleasure to see Mr. Jacobson in consultation today. The patient was counseled given the fact that his stress test was nonischemic, this chest pain does not appear to be cardiac in origin, so no further cardiac testing or intervention is necessary at this time. He is on a very good medical regimen and should continue his outpatient doses of aspirin, atorvastatin and lisinopril/hydrochlorothiazide. Lipid panel was drawn, but his triglycerides were too high for his LDL to be calculated and direct LDL should be obtained. Otherwise, no cardiac followup is necessary. It would be okay to discharge the patient to home from a cardiac standpoint.
[2016-10-09 00:10] VITALS: BP 110/67; PULSE 60; TEMP 36.7; O2SAT 99
[2016-10-09] MEDS ORDERED: INSULIN ASPART 100 UNITS/ML 3 ML PEN SC ONE (02:00)
[2016-10-09 04:11] VITALS: BP 106/69; PULSE 66; TEMP 36.5; O2SAT 96
[2016-10-09] MEDS: HEPARIN SOD 5000 UNIT/0.5 ML CARP SQ SCH ×2 (05:34→14:00)
[2016-10-09 07:50] VITALS: BP 112/66; PULSE 62; TEMP 36.8; O2SAT 95
[2016-10-09] MEDS: DOCUSATE SODIUM 100 MG CAP PO SCH (08:42)
[2016-10-09] MEDS: ASPIRIN 81 MG ECTAB PO SCH (08:42)
[2016-10-09] MEDS: LISINOPRIL/HCTZ 20/25MG TAB PO SCH (08:42)
[2016-10-09] MEDS: ATORVASTATIN 20 MG TAB PO SCH (08:42)
[2016-10-09] MEDS: INSULIN ASPART 100 UNITS/ML 3 ML PEN SC SCH ×3 (08:46→16:30)
[2016-10-09] MEDS ORDERED: INSULIN GLARGINE SOLOSTAR 100 UNITS/ML 3 ML PEN SC SCH ×2 (09:00→10:00)
--- NOTE | 2016-10-09 09:52 | DOBUTAMINE ECHO ---
*NOTICE TO RECEIVING CONSTITUTION PARTY AGENCY This information is strictly Confidential and protected under [place] law. [place] law prohibits you from making any further disclosure of this information unless further disclosure is expressly permitted by the written consent of the person to whom it pertains or is authorized by law. A general authorization for the release of medical or other information is not sufficient for this purpose. Hospital accepts no responsibility if the information is made available to any other person, INCLUDING THE PATIENT. Interpretation Summary * Name: MICKY RODRIGUEZ Study Date: 10/08/2016 09:01 AM BP: 114/55 mmHg * Patient Location: [facility]\S\N282\S\2 HR: 72 * : 1960 (M/d/yyyy) Gender: Male Height: 71 in * Age: 56 yrs Ethnicity: [place] Weight: 199 lb * Ordering Physician: Avila Berry * Performed By: Yoselin Lipscomb RDCS * * Reason For Study: Chest pain * BSA: 2.1 m2 * -- Conclusions -- * Nonischemic dobutamine stress echocardiogram. * No arrhythmias. * Normal HR and BP response. * At rest, normal LV chamber size and wall thickness. * Normal LV systolic function, EF 60-65%. * No segmental left ventricular wall motion abnormalities are noted. * Grade I diastolic dysfunction. * No significant valvular pathology. Procedure Details * DOBUTAMINE ECHO, CPT#[id number] * ECHO DOPPLER, CPT #[id number] * ECHO COLOR FLOW, CPT #[id number] Left Ventricle * The left ventricle is normal in size. * There is normal left ventricular wall thickness. * Ejection Fraction = 60-65%. * Left ventricular systolic function is normal. * No segmental left ventricular wall motion abnormalities are noted. * Resting wall motion: Normal. Stress wall motion: Appropriate increase in Left ventricular systolic function and decrease in cavity size. No stress induced segmental wall motion abnormalities. Right Ventricle * The right ventricular cavity size is normal (basal dimension <4.2 cm in right ventricular apical 4-chamber view). * The right ventricular systolic function is normal as assessed by tricuspid annular plane systolic excursion (TAPSE) (normal >1.5 cm). Atria * The left atrial size is normal. * Right atrial size is normal. * No ASD detected; PFO is not assessed. Mitral Valve * The mitral valve is normal in structure and function. Tricuspid Valve * The tricuspid valve is normal in structure and function. Aortic Valve * The aortic valve is normal in structure and function. Pulmonic Valve * The pulmonary valve is not well seen, but the Doppler examination is normal without significant regurgitation or stenosis. Great Vessels * The aortic root and proximal ascending aorta are normal sized. Pericardium * There is no pericardial effusion. Stress Parameters * Normal baseline electrocardiogram. * Stress ECG: No ST changes. No arrhythmias. * No arrhythmia were noted with stress. * The stress portion of this study was personally supervised by the undersigned interpreting physician. * Rest heart rate was '72' BPM. * Rest blood pressure was '114/55' * Maximum heart rate achieved was 151 bpm. * Maximum heart rate was 90 % of maximum age-predicted heart rate. * Maximum blood pressure was '170/75' * Maximum Dobutamine infusion rate was '30' mcg/kg/min. * Dobutamine infusion was terminated due to achieving target heart rate * A total of 5 mg of IV Metoprolol was administered to reverse Dobutamine-induced tachycardia. * The patient did not exhibit any symptoms during drug infusion. Left Ventricular Diastolic Function * Grade I diastolic dysfunction, (abnormal relaxation pattern). MMode 2D Measurements and Calculations IVSd 0.81 cm LVIDd 4.7 cm LVIDs 2.6 cm LVPWd 0.82 cm IVS/LVPW 0.99 FS 44.2 % EDV(Teich) 104.3 ml ESV(Teich) 25.7 ml EF(Teich) 75.4 % EDV(cubed) 106.3 ml ESV(cubed) 18.5 ml EF(cubed) 82.6 % LV mass(C)d 126.6 grams LV mass(C)dI 60.2 grams/m\S\2 SV(Teich) 78.6 ml SI(Teich) 37.3 ml/m\S\2 SV(cubed) 87.8 ml SI(cubed) 41.7 ml/m\S\2 Ao root diam 2.9 cm Ao root area 6.6 cm\S\2 ACS 1.5 cm LA dimension 3.4 cm asc Aorta Diam 3.2 cm LA/Ao 1.2 LVOT diam 2.0 cm LVOT area 3.2 cm\S\2 LVAd ap4 24.6 cm\S\2 LVLd ap4 7.5 cm EDV(MOD-sp4) 65.5 ml EDV(sp4-el) 68.3 ml LVAs ap4 13.3 cm\S\2 LVLs ap4 6.0 cm ESV(MOD-sp4) 25.0 ml ESV(sp4-el) 25.1 ml EF(MOD-sp4) 61.9 % EF(sp4-el) 63.3 % LVAd ap2 28.6 cm\S\2 LVLd ap2 7.8 cm EDV(MOD-sp2) 89.0 ml EDV(sp2-el) 89.5 ml LVAs ap2 16.0 cm\S\2 LVLs ap2 6.5 cm ESV(MOD-sp2) 32.8 ml ESV(sp2-el) 33.6 ml EF(MOD-sp2) 63.1 % EF(sp2-el) 62.4 % LVLd %diff 3.2 % EDV(MOD-bp) 75.7 ml LVLs %diff 8.0 % ESV(MOD-bp) 29.5 ml EF(MOD-bp) 61.0 % SV(MOD-sp4) 40.5 ml SI(MOD-sp4) 19.3 ml/m\S\2 SV(MOD-sp2) 56.1 ml SI(MOD-sp2) 26.7 ml/m\S\2 SV(MOD-bp) 46.2 ml SI(MOD-bp) 22.0 ml/m\S\2 SV(sp4-el) 43.2 ml SI(sp4-el) 20.5 ml/m\S\2 SV(sp2-el) 55.8 ml SI(sp2-el) 26.5 ml/m\S\2 Doppler Measurements and Calculations MV E max misha 69.4 cm/sec MV A max misha 84.9 cm/sec MV E/A 0.82 MV dec time 0.26 sec Ao V2 max 134.7 cm/sec Ao max PG 7.3 mmHg Ao max PG (full) 0.30 mmHg DEIRDRE(V,A) 3.1 cm\S\2 DEIRDRE(V,D) 3.1 cm\S\2 LV V1 max PG 7.0 mmHg LV V1 max 131.8 cm/sec PA V2 max 120.8 cm/sec PA max PG 5.8 mmHg PA acc slope 655.5 cm/sec\S\2 PA acc time 0.10 sec PA pr(Accel) 33.1 mmHg
--- NOTE | 2016-10-09 10:00 | Pharmacy Progress Note ---
Glycemic Control: Progress Nt Date of Service Oct 09, 2016. Scope Glycemic Pharmacist consulted by Dr Retana on 10/08 for glycemic control and to write orders per [facility] inpatient glycemic control protocol. Objective Accuchecks BSG (last 24hrs): Test 10/08/16 11:14 10/08/16 17:11 10/08/16 20:45 10/09/16 02:48 Bedside Glucose 336 mg/dl (70-99) 196 mg/dl (70-99) 142 mg/dl (70-99) 139 mg/dl (70-99) Test 10/09/16 07:33 Bedside Glucose 203 mg/dl (70-99) HbA1c: Test 10/08/16 07:05 Hemoglobin A1c 13.9 % (4.5-5.6) H Recent Pertinent Medications Outpatient Anti-diabetic Regimen: * Basaglar (insulin glargine) 30 units daily * Metformin ER 750 mg daily The patient is currently receiving: * Basal insulin: Lantus 16 units BID * Correctional Insulin: Novolog Correction per scale ACHS Goal Range: Low 110 mg/dL - High 140 mg/dL Correction Factor: 20 mg/dL/unit * Prandial insulin: Per carb ratio of 1 unit per 8 grams CHO consumed * Oral Agents: None at this time Risk Factors for Insulin Resistance: * Diet: type 2 diabetes/AHA - consumed ~30-70 gm CHO with each meal Assessment & Plan ASSESSMENT: * ADA & AACE recommend a goal blood sugar range 140-180 mg/dl for the majority of critically ill & non-critically ill patients. However, more stringent targets may be selected in individual cases. 10/08/16 * Mr. Jacobson is a 56 y/o male admitted w/ hyperglycemia, but not in DKA * His A1c is significantly elevated, indicating inadequate insulin doses as an outpatient * He is on basal insulin + metformin as an outpatient, but most likely needs prandial insulin as well * As an inpatient, will plan to utilize a basal/bolus regimen using Lantus + Novolog * Will base insulin dosing off of his weight and a stress level of 2 * Will also add overnight accuchecks to provide additional correctional insulin and help to determine appropriate basal dose 10/09/16 * Mr. Jacobson rec'd 77 units of SQ insulin yesterday with BSGs coming down very nicely overnight * Est TDD ~ 70 units so will work to transition to outpatient regimen as he is going to be d/c'd today PLAN FOR INPATIENT GLYCEMIC CONTROL: * Change back to once daily Lantus dosing - 34 units qAM * Novolog ACHS * Goal 110-140 mg/dL - more stringent due to patient's age * LOOSEN CF 25 mg/dL/unit * CR 1 unit per 8 gm CHO consumed RECOMMENDATIONS FOR DISCHARGE: * Basaglar 34 units qAM - pt already on, this is a dose increase PLUS * Novolog pen 8 units with meals * Cost for patient - $160/month (3 pens); may consider Rx for just 1 pen until pt can be seen as an outpt OR * Novolin-R 8 units with meals * Cost for patient - $68/vial * Less preferred option as patient will need syringes and needles with this and has only used pens before Thank you.
[2016-10-09 12:01] VITALS: Ht 180.3 cm; Wt 90.6 kg
[2016-10-09 12:31] VITALS: BP_SYST 109; BP_SYST 130; BP_DIAS 71; BP_DIAS 78; PULSE 69; PULSE 74; TEMP 36.4; TEMP 36.7; O2SAT 90; O2SAT 96
[2016-10-09] MEDS ORDERED: INSU100I23 SQ (12:40)
[2016-10-09] MEDS ORDERED: NVLGIPEN SC (12:40)
--- NOTE | 2016-10-09 12:43 | Discharge Instructions ---
Discharge Instructions Date of Service Oct 09, 2016. Admission Reason for Admission: Chest Pain,Hyperglycemia Discharge Discharge Diagnosis / Problem: Chest pain. Uncontrolled Diabetes. Discharge Goals Goal(s): Improve disease control, Diagnostic testing Activity Recommendations Activity Limitations: resume your previous activity . Instructions / Follow-Up Instructions / Follow-Up Please follow up with Family Medicine Dr. Pascual on October 12 at 11:05am. Dr. Pascual can refer you to the diabetes management clinic. Basaglar insulin has been increased to 34units in the morning. Please take Novolog insulin 8units with meals. If you do not eat, then do not take this insulin. Please discuss with Dr. Pascual as to whether or not you are able to continue with this insulin financially with coupons. Current Hospital Diet Patient's current hospital diet: Diabetes Type 2 Diet, AHA Diet (Heart Healthy) Discharge Diet Recommended Diet: AHA Diet (Heart Healthy), Diabetes Type 2 Diet Pending Studies Studies pending at discharge: no Laboratory Results Hemoglobin A1c Test 10/08/16 07:05 Range/Units Estimated Average Glucose 352 mg/dl Hemoglobin A1c 13.9 H 4.5-5.6 % Lipid Panel Test 10/08/16 07:05 Range/Units Triglycerides Level 402 H 0-150 mg/dl Cholesterol Level 156 0-200 mg/dl HDL Cholesterol 30 mg/dl Cholesterol/HDL Ratio 5.2 LDL Cholesterol, Calculated mg/dl Medical Emergencies . Who to Call and When: Medical Emergencies: If at any time you feel your situation is an emergency, please call 911 immediately. . Non-Emergent Contact Non-Emergency issues call your: Primary Care Provider . . "Provider Documentation" section prepared by Pippa Shook. VTE Core Measure Inpt VTE Proph given/why not?: Unfractionated heparin SQ
--- NOTE | 2016-10-09 12:49 | Discharge Summary ---
Discharge Summary Date of Service Oct 09, 2016. Discharge Summary Admission Date: Oct 08, 2016 at 01:17 Discharge Date: Oct 09, 2016 Discharge Disposition: Home Principal Diagnosis: Chest pain. Secondary Diagnoses/Problems: Uncontrolled diabetes. Procedures: Dobutamine stress echo negative for ischemia Consultations: Cardiology Medication Reconciliation New Medications: Insulin Aspart (Novolog Flexpen) 100 Units/Ml Inj 8 UNITS SC TIDM for 30 Days, #1 PEN Changed Medications: Insulin Glargine (Basaglar Kwikpen) 100 Unit/Ml Inj 34 UNITS SQ DAILY for 30 Days (Changed from: 30 UNITS) Continued Medications: Albuterol Hfa (Ventolin Hfa) 200 Puffs/33440 Mcg Aers 2 PUFFS INH Q4 PRN for Shortness of Breath Aspirin (Aspirin Ec) 81 Mg Tab 81 MG PO DAILY Atorvastatin (Atorvastatin Calcium) 20 Mg Tab 20 MG PO DAILY Docusate Sodium (Docqlace) 100 Mg Cap 100 MG PO DAILY Hctz/Lisinopril (Lisinopril/Hctz 20/25 Mg) 1 Ea Tab 1 TAB PO DAILY Indomethacin (Indocin) 50 Mg Cap 50 MG PO TID PRN for Pain, #20 CAP WITH FOOD UNTIL PAIN RESOLVES Metformin Hcl (Glucophage Er) 750 Mg Tab 750 MG PO DAILY Admission Information HPI (per Admitting provider): The patient is a 56 year old male who presents to the Emergency Room with complaints of high blood sugars with left-sided chest pain. Patient states that he has had chest pain for the past 3 days that has been intermittent described as discomfort, ranging in severity 4 out of 10. Nothing makes it better or worse. Patient states today he noticed his blood sugars were high. Patient states he's been feeling fatigued with polydipsia, polyuria and diplopia. Patient denies dyspnea, fever, chills, cough, congestion, abdominal pain, vomiting, diarrhea, dysuria. No history of DKA. Patient states his grandfather had a heart attack in his 70s. Patient does have diabetes, blood pressure and cholesterol. He does not smoke. Hospital Course Patient is a 56 y/o male who presented with elevated glucoses and chest pain. Cardiology was consulted. ACS r/o was negative. Dobutamine stress echo was negative for ischemia. Patient has poorly controlled diabetes. A1c was 13.9. 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 Lantus was increased to 34 units in the morning. Patient was discharged on Novolog 8units with meals. Patient was encouraged to discuss with PCP referral to diabetes management clinic. Patient was also encouraged to discuss financial aspect of Novolog insulin pen and alternative means of insulin therapy if needed. Patient was continued on the remainder of his home medications. Patient deemed stable for discharge with Family Medicine follow up. PE on discharge: General- awake; alert; NAD Eyes- EOMI; no scleral icterus Neck- no stridor; trachea midline Lungs- CTA bilaterally; no wheezes/crackles Heart- RRR; no m/r/g Abdomen- soft; NTND; nBS Back- no gross abnormalities Extremities- no c/c/e; no deformity Neuro- no focal deficits Skin- no appreciable rash or bruise . Total time spent on discharge = This includes examination of the patient, discharge planning, medication reconciliation, and communication with other providers. Discharge Instructions Discharge Instructions Date of Service Oct 09, 2016. Admission Reason for Admission: Chest Pain,Hyperglycemia Discharge Discharge Diagnosis / Problem: Chest pain. Uncontrolled Diabetes. Discharge Goals Goal(s): Improve disease control, Diagnostic testing Activity Recommendations Activity Limitations: resume your previous activity . Instructions / Follow-Up Instructions / Follow-Up Please follow up with Family Medicine Dr. Pascual on October 12 at 11:05am. Dr. Pascual can refer you to the diabetes management clinic. Basaglar insulin has been increased to 34units in the morning. Please take Novolog insulin 8units with meals. If you do not eat, then do not take this insulin. Please discuss with Dr. Pascual as to whether or not you are able to continue with this insulin financially with coupons. Current Hospital Diet Patient's current hospital diet: Diabetes Type 2 Diet, AHA Diet (Heart Healthy) Discharge Diet Recommended Diet: AHA Diet (Heart Healthy), Diabetes Type 2 Diet Pending Studies Studies pending at discharge: no Laboratory Results Hemoglobin A1c Test 10/08/16 07:05 Range/Units Estimated Average Glucose 352 mg/dl Hemoglobin A1c 13.9 H 4.5-5.6 % Lipid Panel Test 10/08/16 07:05 Range/Units Triglycerides Level 402 H 0-150 mg/dl Cholesterol Level 156 0-200 mg/dl HDL Cholesterol 30 mg/dl Cholesterol/HDL Ratio 5.2 LDL Cholesterol, Calculated mg/dl Medical Emergencies . Who to Call and When: Medical Emergencies: If at any time you feel your situation is an emergency, please call 911 immediately. . Non-Emergent Contact Non-Emergency issues call your: Primary Care Provider . . "Provider Documentation" section prepared by Pippa Shook. VTE Core Measure Inpt VTE Proph given/why not?: Unfractionated heparin SQ Additional Copies To Johanna Pascual M.D.
[2016-10-09 14:22] VITALS: BP 109/71; PULSE 74; TEMP 36.7; O2SAT 96
== END 2016-10-09 15:30 | disposition home or self-care (01) | DRG 313 ==
LOC: ENRESERVDT → ENRESERVTM → C.EDB 22:58 → C.MED 10-08 01:17
PROVIDERS: ADMIT Hospitalist; ATTEND Internal Medicine
DX: R07.2 Precordial pain (principal); E11.65 Type 2 diabetes mellitus with hyperglycemia; E78.5 Hyperlipidemia, unspecified; G47.33 Obstructive sleep apnea (adult) (pediatric); N20.0 Calculus of kidney; I10 Essential (primary) hypertension; I25.10 Atherosclerotic heart disease of native coronary artery without angina pectoris; K58.9 Irritable bowel syndrome, unspecified; Z99.89 Dependence on other enabling machines and devices; Z79.4 Long term (current) use of insulin; Z79.82 Long term (current) use of aspirin; Z79.84 Long term (current) use of oral hypoglycemic drugs; Z79.899 Other long term (current) drug therapy